=== PATIENT | female | born 1955 | race Caucasian/White ===

== ENCOUNTER 2018-08-29 15:37 | Emergency (ER) | payer BC, MEDICAID ==
[2018-08-29] MEDS ORDERED: DUONEB 0.5-3 MG/3 ml Neb IH ONE ×2 (16:38→16:46)
[2018-08-29] MEDS ORDERED: PHENERGAN WITH CODEINE SYRUP PO ONE (16:38)
--- NOTE | 2018-08-29 16:51 | ERPHSYRPT ---
- History of Present Illness Time Seen by Provider: 08/29/18 16:41 Source: patient Exam Limitations: no limitations Patient Subjective Stated Complaint: CONSISTANT COUGHING SINCE LAST NIGHT. OCCASIONAL PRODUCTIVE THICK YELLOW SPUTUM. HAS COUGHING "FITS" WHEN TALKING OR ACITVITY. DENIES FEVER, [place], VOMITING, DIARRHEA. Triage Nursing Assessment: ALERT AND ORIENTED. FACE FLUSHED. NON PRODUCTIVE COUGHING OBSERVED. BILATERAL LUNGS DIMINISHED. Physician History: C/o productive cough, wheezing since last night, sinus congestion, denies chest pain, headaches, vomiting, fever, chills, other complaints. She has been coughing up yellow phlegm. Timing/Duration: yesterday Cough Quality/Degree: severe, productive cough Possible Cause: occasional episodes Modifying Factors: Improves With: nothing Associated Symptoms: cough, nasal congestion, sinus infection, wheezing Allergies/Adverse Reactions: levofloxacin Allergy (Mild, Verified 05/28/14 15:50) Home Medications: Levothyroxine Sodium 75 Mcg [Synthroid 75 Mcg] 75 mcg PO DAILY 10/29/16 [ History] Lorazepam 0.5 mg [Ativan 0.5 MG] 0.5 mg PO BID PRN PRN 10/29/16 [History] Venlafaxine HCl [Effexor Xr] 250 mg PO DAILY 10/29/16 [History] Gabapentin 300 mg PO TID 08/29/18 [History] Hx Tetanus, Diphtheria Vaccination/Date Given: Yes Hx Influenza Vaccination/Date Given: Yes (MAR 2018) Hx Pneumococcal Vaccination/Date Given: Yes (2017) Immunizations Up to Date: Yes - Review of Systems Constitutional: No Symptoms Eyes: No Symptoms Ears, Nose, & Throat: Nose Congestion, Sinus Drainage, No Throat Pain, No Hoarse , No Painful Swallowing, No Stridor Respiratory: Cough, No Dyspnea Cardiac: No Symptoms Abdominal/Gastrointestinal: No Symptoms Genitourinary Symptoms: No Symptoms Musculoskeletal: No Symptoms Skin: No Symptoms Neurological: No Symptoms All Other Systems: Reviewed and Negative - Past Medical History Pertinent Past Medical History: No Neurological History: No Pertinent History ENT History: No Pertinent History Cardiac History: No Pertinent History Respiratory History: No Pertinent History Endocrine Medical History: Hypothyroidism Musculoskeletal History: No Pertinent History, Osteoarthritis GI Medical History: No Pertinent History History: No Pertinent History Psycho-Social History: Anxiety, Depression Female Reproductive Disorders: No Pertinent History Other Medical History: NONSIGNIFICANT EXCEPT FOR ROTATOR CUFF SURGERY IN 2003. PAIN MANAGMENT FOR BACK - Past Surgical History Past Surgical History: Yes Musculoskeletal: Orthopedic Surgery Female Surgical History: Hysterectomy Other Surgical History: shoulder surgery, tonsils - Social History Smoking Status: Former smoker Drug Use: none Patient Lives Alone: Yes Significant Family History: heart disease - Nursing Vital Signs Nursing Vital Signs: Initial Vital Signs Respiratory Rate 24 08/29/18 15:46 O2 Sat by Pulse Oximetry 96 08/29/18 15:46 Pain Scale Pain Intensity 4 - Physical Exam General Appearance: no apparent distress Eye Exam: eyes nml inspection Ears, Nose, Throat Exam: normal ENT inspection, TMs normal, pharynx normal, moist mucous membranes Neck Exam: normal inspection, non-tender, supple, No JVD Respiratory Exam: normal breath sounds, lungs clear, airway intact, No chest tenderness, No respiratory distress Cardiovascular Exam: regular rate/rhythm, normal heart sounds, normal peripheral pulses, No murmur Gastrointestinal/Abdomen Exam: soft, normal bowel sounds, No tenderness Back Exam: normal inspection, No CVA tenderness, No vertebral tenderness Extremity Exam: normal inspection, No calf tenderness, No prema's sign, No pedal edema Neurologic Exam: alert, oriented x 3, normal mood/affect Skin Exam: normal color, warm, dry, No rash, No petechiae Lymphatic Exam: No adenopathy SpO2 Interpretation: normal SpO2: 93 O2 Delivery: Room Air - Course Nursing assessment & vital signs reviewed: Yes - Radiology Exams Chest X-ray Interpretation: Interpreted by me, Negative Ordered Tests: Active Orders 24 hr Category Date Time Status CHEST 2 VIEWS (PA AND LAT) Stat Exams 08/29/18 16:38 Ordered Peak Expiratory Flow Rate ONCE RT 08/29/18 16:44 Completed Respiratory Therapy Assessment DAILY RT 08/29/18 16:44 Completed Medication Summary Discontinued Medications Generic Name Dose Route Start Last Admin Trade Name Freq PRN Reason Stop Dose Admin Albuterol Sulfate 2.5 gm 08/29/18 17:50 Ventolin Hfa Mdi IH 08/29/18 17:51 NOW ONE Albuterol/Ipratropium 3 ml 08/29/18 16:38 08/29/18 16:49 Duoneb 0.5-3 Mg/3 Ml Neb IH 08/29/18 16:39 3 ml STAT ONE Administration Albuterol/Ipratropium Confirm 08/29/18 16:46 Duoneb 0.5-3 Mg/3 Ml Neb Administered 08/29/18 16:47 Dose 3 ml IH .STK-MED ONE Amoxicillin 500 mg 08/29/18 17:50 Amoxil 500 Mg PO 08/29/18 17:51 STAT ONE Guaifenesin/Codeine Phosphate 5 ml 08/29/18 17:15 08/29/18 17:16 Robitussin Ac Syrup Unit Dose Cup PO 08/29/18 17:16 5 ml ONCE ONE Administration Guaifenesin/Codeine Phosphate 5 ml 08/29/18 17:50 Robitussin Ac Syrup Unit Dose Cup PO 08/29/18 17:51 NOW ONE Promethazine HCl/Codeine 5 ml 08/29/18 16:38 08/29/18 17:17 Phenergan With Codeine Syrup PO 08/29/18 16:39 Not Given STAT ONE Lab/Rad Data: Laboratory Results 08/29/18 Range/Units 17:04 Influenza Type A Ag NEGATIVE (NEGATIVE) Influenza Type B Ag NEGATIVE (NEGATIVE) RSV (PCR) NEGATIVE (Negative) Group A Strep Antibody NEGATIVE (NEGATIVE) - Progress Progress: improved Air Movement: good Progress Note: 08/29/18 17:53 Pt improved after Duoneb treatment and Robitussin with codeine, no fever or chest pain, no nausea, stable, we discussed her results and instructions given to rest x 2-3 days, drink plenty of fluids, and follow up with her physician in 2-3 days. She was started on PO Amoxicillin. Blood Culture(s) Obtained: No Antibiotics given: Yes Counseled pt/family regarding: lab results, diagnosis, need for follow-up, rad results - Departure Departure Disposition: Home Clinical Impression: Bronchospasm with bronchitis, acute Sinusitis Qualifiers: Sinusitis location: unspecified location Chronicity: acute Recurrence: non- recurrent Qualified Code(s): J01.90 - Acute sinusitis, unspecified Condition: Stable Critical Care Time: No Referrals: LELA AGUILAR NP [Primary Care Provider] - Instructions: Cough, Adult (DC), Sinusitis, Adult (DC), Asthma, Adult (DC) Additional Instructions: Rest x 2-3 days, drink plenty of fluids, and follow up with your physician in 2- 3 days, return if severe shortness of breath, vomiting, fever> 102 F! Prescriptions: Albuterol 8 gm Mdi Hfa [Ventolin Hfa MDI] 8 gm IH Q4H PRN #1 [id number] PRN Reason: Shortness Of Breath/Wheezing Albuterol/Ipratropium 3ml Neb* [DUONEB 0.5-3 MG/3 ml Neb] 3 ml NEBULIZE Q6H PRN #25 ampul.neb PRN Reason: Shortness Of Breath/Wheezing Amoxicillin 875 mg PO BID #20 tablet Guaifenesin/Codeine Phosphate [Robitussin AC Syrup] 5 ml PO BID PRN #120 ml PRN Reason: Cough Methylprednisolone Packet [Medrol Dosepack] 4 mg PO UD #1 packet
[2018-08-29] MEDS ORDERED: Robitussin AC Syrup Unit Dose Cup PO ONE ×2 (17:15→17:50)
[2018-08-29 17:37] LABS: Group A Strep NEGATIVE (NEGATIVE); INFLUENZA A NEGATIVE (NEGATIVE); INFLUENZA B NEGATIVE (NEGATIVE); RESPIRATORY SYNCTIAL VIRUS NEGATIVE (Negative)
[2018-08-29] MEDS ORDERED: AMOXIL 500 MG PO ONE (17:50)
[2018-08-29] MEDS ORDERED: Ventolin Hfa MDI IH ONE ×2 (17:50→18:16)
[2018-08-29] MEDS ORDERED: Robitussin AC Syrup Unit Dose Cup ONE (18:03)
[2018-08-29] MEDS ORDERED: AMOXIL 500 MG ONE (18:03)
[2018-08-29 18:29] VITALS: BP 128/80; PULSE 85; O2SAT 97
--- NOTE | 2018-08-30 08:58 | XRAY ---
Indication: Cough. Comparison: None PA/lateral chest again demonstrates normal heart and lungs. Bony thorax intact with interval distal left clavicle resection. No new/acute cardiopulmonary abnormalities.
== END 2018-08-29 18:32 | disposition home or self-care (01) ==
LOC: ED 15:37
DX: J20.9 Acute bronchitis, unspecified (principal); J98.01 Acute bronchospasm; J01.90 Acute sinusitis, unspecified; Z79.899 Other long term (current) drug therapy
CPT/HCPCS: 71046; 87631; 87651; 94150; 94640; 99283; A9270-GY